=== PATIENT | male | born 1945 | race Caucasian/White ===

== ENCOUNTER → 2016-04-16 | Outpatient (CLI) | payer MEDICARE | END | disposition home or self-care (01) | LOC: PCVCCLINIC 11:45 | PROVIDERS: ATTEND Internal Medicine Cardiovascular Disease | DX: I25.10 Atherosclerotic heart disease of native coronary artery without angina pectoris (principal); E78.00 Pure hypercholesterolemia, unspecified; I10 Essential (primary) hypertension; I25.5 Ischemic cardiomyopathy; F41.9 Anxiety disorder, unspecified | CPT/HCPCS: 93005; G0463 ==

== ENCOUNTER → 2016-04-30 | Outpatient (CLI) | payer MEDICARE ==
[~2016-04-30] MED LIST: REGADENOSON 0.4 MG/5 ML DISP.SYRIN. IV ONE
== END | disposition home or self-care (01) ==
LOC: PCVCIMAG 07:49
PROVIDERS: ATTEND Internal Medicine Cardiovascular Disease
DX: I25.10 Atherosclerotic heart disease of native coronary artery without angina pectoris (principal); Z95.5 Presence of coronary angioplasty implant and graft
CPT/HCPCS: 78452; 93017; A9500; J2785

== ENCOUNTER → 2017-03-17 | Outpatient (CLI) | payer MEDICARE | END | disposition home or self-care (01) | LOC: PCVCCLINIC 11:18 | DX: I25.10 Atherosclerotic heart disease of native coronary artery without angina pectoris (principal); I10 Essential (primary) hypertension; I25.5 Ischemic cardiomyopathy; I65.29 Occlusion and stenosis of unspecified carotid artery; I77.810 Thoracic aortic ectasia; Q21.1 Atrial septal defect; E78.00 Pure hypercholesterolemia, unspecified; I48.0 Paroxysmal atrial fibrillation; R09.89 Other specified symptoms and signs involving the circulatory and respiratory systems; R94.31 Abnormal electrocardiogram [ECG] [EKG]; Z87.891 Personal history of nicotine dependence; Z79.82 Long term (current) use of aspirin; Z79.899 Other long term (current) drug therapy | CPT/HCPCS: 80061; 93005; G0463 ==

== ENCOUNTER → 2017-06-09 | Outpatient (CLI) | payer MEDICARE | END | disposition home or self-care (01) | LOC: PCVCIMAG 09:06 | DX: I10 Essential (primary) hypertension (principal) | CPT/HCPCS: 76770; 93975 ==

== ENCOUNTER → 2017-06-11 | Outpatient (CLI) | payer MEDICARE | END | disposition home or self-care (01) | LOC: PCVCCLINIC 12:18 | DX: I25.10 Atherosclerotic heart disease of native coronary artery without angina pectoris (principal); I10 Essential (primary) hypertension; Q21.1 Atrial septal defect; I48.0 Paroxysmal atrial fibrillation; F41.9 Anxiety disorder, unspecified; I25.84 Coronary atherosclerosis due to calcified coronary lesion; R94.31 Abnormal electrocardiogram [ECG] [EKG]; G45.8 Other transient cerebral ischemic attacks and related syndromes; Z79.82 Long term (current) use of aspirin; Z79.899 Other long term (current) drug therapy | CPT/HCPCS: 93005; G0463 ==

== ENCOUNTER → 2017-11-03 | Outpatient (CLI) | payer MEDICARE ==
--- NOTE | 2017-11-03 09:59 | PCVCIMAG ---
APPROVED REPORT Indications Bruit Risk Factors Hypertension: TIA/CVA History Hyperlipidemia Doppler Spectral Velocity Analysis PSV / EDVPSV / EDV ECA (R) 80 / 5 cm/sECA (L) 60 / 4 cm/s dICA (R) 46 / 9 cm/sdICA (L) 71 / 13 cm/s [place] (R) 60 / 10 cm/smICA (L) 106 / 19 cm/s pICA (R) 51 / 8 cm/spICA (L) 56 / 6 cm/s Bulb (R) 28 / 6 cm/sBulb (L) 37 / 5 cm/s dCCA (R) 79 / 6 cm/sdCCA (L) 60 / 6 cm/s mCCA (R) 95 / 6 cm/smCCA (L) 93 / 8 cm/s Vert (R) 65 / 10 cm/sVert (L) 81 / 11 cm/s ICA/CCA 0.64ICA/CCA 1.14 Basic Measurements Blood Pressure: Pulses: Right Left RightLeft Brachial(Sitting) 150/08bfRk342/72mmHgTemporal Real Time B-Mode Imaging Vert. (R)AntegradeVert. (L)Antegrade Findings The right carotid bulb has minimal plaque. The right proximal internal carotid artery shows no significant stenosis. The right common carotid artery shows no significant stenosis. The right external carotid artery shows no significant stenosis. The left carotid bulb has minimal plaque. The left proximal internal carotid artery shows no significant stenosis. The left common carotid artery shows no significant stenosis. The left external carotid artery shows no significant stenosis. Conclusion 1. No significant stenosis involving either carotid artery 2. Antegrade vertebral flow
--- NOTE | 2017-11-03 10:12 | PCVCIMAG ---
APPROVED REPORT Study performed: 11/03/2017 08:56:56 EXAM: Comprehensive 2D, Doppler, and color-flow Echocardiogram Patient Location: Echo lab Room #: 2Status: routine BSA: 2.17 HR: 62 bpmBP: 168/62 mmHg Rhythm: NSR Other Information Study Quality: Good Risk Factors: Cardiac Risk Factors: HTN, Hyperlipidemia Indications ASD CAD Cardiomyopathy Hx PFO, AO root dilitation 2D Dimensions LVEF(%): 55.31 (>50%) IVSd: 11.94 (7-11mm)LVOT Diam: 22.31 (18-24mm) LVDd: 57.98 mm PWd: 9.43 (7-11mm)Ascending Ao: 53.32 (22-36mm) LVDs: 41.03 (25-40mm) Left Atrium: 40.42 (27-40mm) Aortic Root: 44.48 mm LV Single Plane 4CH: 43.60 % LV Single Plane 2CH: 45.30 %Melendez's LVEF: 44.45 % Biplane EF: 43.8 % Volumes Left Atrial Volume (Systole) Single Plane 4CH: 68.42 mLSingle Plane 2CH: 68.23 mL Biplane LA Volume: 72.00 mLLA ESV Index: 33.00 mL/m2 Aortic Valve AoV Peak Wilfredo.: 1.60 m/s AO Peak Gr.: 10.28 mmHgLVOT Max P.75 mmHg LVOT Max V: 1.09 m/s DONA Vmax: 2.66 cm2 AI Vmax: 4.41 m/s AI [place]: 2.97 m/s2 AI PHT: 436.15 ms Mitral Valve E/A Ratio: 0.5 MV Decel. Time: 183.09 ms MV E Max Wilfredo.: 0.37 m/s MV A Wilfredo.: 0.74 m/s IVRT: 207.61 ms TDI E/Lateral E': 7.40E/Medial E': 7.40 Medial E' Wilfredo.: 0.05 m/s Lateral E' Wilfredo.: 0.05 m/s Pulmonary Valve PV Peak Wilfredo.: 0.83 m/sPV Peak Gr.: 2.77 mmHg Pulmonary Vein P Vein S: 0.72 m/sP Vein A: 0.25 m/s P Vein D: 0.36 m/sP Vein A Dur.: 103.8 msec P Vein S/D Ratio: 2.00 Tricuspid Valve TR Peak Wilfredo.: 1.98 m/s TR Peak Gr.: 15.64 mmHg TV Vmax: 0.71 m/sPA Pressure: 23.00 mmHg Left Ventricle Left ventricle is mildly dilated. There is normal LV segmental wall motion. Mild concentric left ventricular hypertrophy. Left ventricular systolic function is mildly decreased. LVEF is 40-45%. Grade I - abnormal relaxation pattern. Right Ventricle The right ventricle is normal size. The right ventricular systolic function is normal. Atria The left atrium size is normal. PFO is noted from prior study. The right atrium size is normal. Aortic Valve Aortic valve is trileaflet. Mild aortic valve sclerosis. Aortic valve is possibly bicuspid. Moderate aortic regurgitation. There is no aortic valvular stenosis. Mitral Valve The mitral valve is normal in structure. There is no mitral valve regurgitation noted. No evidence of mitral valve stenosis. Tricuspid Valve The tricuspid valve is normal in structure. Trace tricuspid regurgitation with a normal PA pressure of 23 mmHg. Pulmonic Valve The pulmonary valve is normal in structure. There is no pulmonic valvular regurgitation. Great Vessels Aortic root is moderately dilated. The ascending aorta is severely dilated at 5.3cm. The aortic arch is dilated at 3.5cm. IVC is normal in size and collapses with >50% inspiration Pericardium There is no pericardial effusion. There is no pleural effusion. <Conclusion> Left ventricle is mildly dilated. Mild concentric left ventricular hypertrophy. Left ventricular systolic function is mildly decreased. LVEF is 40-45%. Grade I - abnormal relaxation pattern. Aortic valve is trileaflet. Mild aortic valve sclerosis. Aortic valve is possibly bicuspid. Moderate aortic regurgitation. There is no aortic valvular stenosis. There is no mitral valve regurgitation noted. Trace tricuspid regurgitation with a normal PA pressure of 23 mmHg. Aortic root is moderately dilated. The ascending aorta is severely dilated at 5.3cm. The aortic arch is dilated at 3.5cm. There is no pericardial effusion.
== END | disposition home or self-care (01) ==
LOC: PCVCIMAG 10:26
PROVIDERS: ATTEND Internal Medicine Cardiovascular Disease
DX: I10 Essential (primary) hypertension (principal); R09.89 Other specified symptoms and signs involving the circulatory and respiratory systems; E78.5 Hyperlipidemia, unspecified; Z86.73 Personal history of transient ischemic attack (TIA), and cerebral infarction without residual deficits; I25.5 Ischemic cardiomyopathy; I25.10 Atherosclerotic heart disease of native coronary artery without angina pectoris; I77.810 Thoracic aortic ectasia; I35.1 Nonrheumatic aortic (valve) insufficiency; I48.0 Paroxysmal atrial fibrillation; I65.23 Occlusion and stenosis of bilateral carotid arteries; E78.00 Pure hypercholesterolemia, unspecified; Q21.1 Atrial septal defect; Z79.82 Long term (current) use of aspirin; Z87.891 Personal history of nicotine dependence
CPT/HCPCS: 85610; 93005; 93306; 93880; G0463

== ENCOUNTER → 2018-05-11 | Outpatient (CLI) | payer MEDICARE ==
--- NOTE | 2018-05-11 11:44 | PCVCIMAG ---
APPROVED REPORT Imaging Protocol: Rest Tc-99m/Stress Tc-99m 1 day Study performed: 05/11/2018 08:59:04 Indication: CAD , Atrial Fibrillation, ICM Patient Location: Out-Patient Stress Nurse: Tatum Lofton RN, Charlotte Westfall RN [place] Tech:Nuria LIU SaezMT Ht: 6 ft 1 in Wt: 205 lbs BSA: 2.17 m2 HR: 61 bpm BP: 177/74 mmHg BMI: 27.04 Rhythm: Sinus Rhythm, nonspecific ST-T abnormalities Medical History Medical History: HTN, Hyperlipidemia, CAD, CVD, Former Smoker, Atrial Fibrillation Medications: Norvasc, ASA, Plavix, Benicar, Trileptal, Prevacid, Bystolic Allergies: No known drug allergies Cardiac Risk Factors: Age Previous Cardiac Procedures: 2008 PCI Pretest Chest Pain Characteristics: No chest pain Physical Disabilities: Knees Meds Held (24 hrs): Bystolic Resting Data Rest SPECT myocardial perfusion imaging was performed in supine position 45 minutes following the intravenous injection of 10.7 mCi of Tc-99m Sestamibi. Time of rest injection: 814 Date: 05/11/2018 Administration Route: IV Administration Site: Right AC Pharmacologic Stress Pharmacologic stress test was performed by injecting Regadenoson 0.4 mg IV push over 10-15 seconds immediately followed by the intravenous injection of 33.9 mCi of Tc-99m Sestamibi. Time of stress injection: 929 Date: 05/11/2018 Administration Route: IV Administration Site: Right AC Gated Stress SPECT was performed 45 minutes after stress injection. The images were gated to evaluate regional wall motion and calculate left ventricular ejection fraction. Stress Test Details Stress Test: Pharmacologic stress testing performed using 0.4 mg of regadenoson per 5 mL given IV over 10 seconds. Reason for pharmacologic stress test: knee issues. HRMax Heart Rate (APMHR): 148 bpm Resting HR: 61 bpmTarget HR (85% APMHR): 125 bpm Max HR Achieved: 95 bpm % of APMHR: 64 Recovery HR: 71 bpm BP Resting BP: 177/74 mmHg Max BP: 194/73 mmHg Recovery BP: 178/74 mmHg ECG Resting ECG: Sinus Rhythm, nonspecific ST-T abnormalities Stress ECG: Sinus Rhythm, nonspecific ST-T abnormalities ST Change: Non-ischemic Arrhythmia: VPC's Recovery ECG: Sinus Rhythm, nonspecific ST-T abnormalities Clinical Reason for Termination: Completed protocol Stress Symptoms: Dyspnea, Lightheaded Exercise duration: 0 min 55 sec Symptoms resolved during recovery. Study Quality Study: Good Study Data Post stress, the left ventricular ejection was 44%.. SSS: 1 SRS: 2 SDS: 0 TID = 1.07. Perfusion There is a medium area of moderately reduced uptake in the basal and mid segment of the inferior wall which is seen on the stress images as well as the resting images. This area is hypokinetic and is most consistent with myocardial scar. Wall Motion Mildly decreased left ventricular systolic function. Nuclear Conclusion ECG Findings: negative for ischemia Clinical Findings: non-diagnostic Nuclear Findings: positive for infarct Exercise Capacity: not assessed Left Ventricular Function: abnormal This study reveals a fixed defect in the mid to basal inferior wall, consistent with infarct. There is mild LV dysfunction, with corresponding hypokinesis of the infarcted territory.
== END | disposition home or self-care (01) ==
LOC: PCVCIMAG 07:51
PROVIDERS: ATTEND Internal Medicine Cardiovascular Disease
DX: I25.10 Atherosclerotic heart disease of native coronary artery without angina pectoris (principal); I48.0 Paroxysmal atrial fibrillation; Q21.1 Atrial septal defect; I65.23 Occlusion and stenosis of bilateral carotid arteries; I10 Essential (primary) hypertension; I25.5 Ischemic cardiomyopathy; I77.810 Thoracic aortic ectasia; E78.5 Hyperlipidemia, unspecified; Z87.891 Personal history of nicotine dependence
CPT/HCPCS: 36415; 78452; 80061; 93017; A9500; G0463; J2785

== ENCOUNTER → 2018-11-24 | Outpatient (CLI) | payer MEDICARE ==
--- NOTE | 2018-11-24 16:48 | PCVCIMAG ---
APPROVED REPORT Study performed: 11/24/2018 13:57:30 EXAM: Comprehensive 2D, Doppler, and color-flow Echocardiogram Patient Location: Echo lab Status: routine BSA: 2.13 HR: 56 bpmBP: 132/70 mmHg Rhythm: NSR Other Information Study Quality: Good Risk Factors: Cardiac Risk Factors: HTN, Hyperlipidemia Indications Pleural Effusion Dilated Aortic Root, Ischemic cardiomyopathy 2D Dimensions IVSd: 12.64 (7-11mm)LVOT Diam: 23.91 (18-24mm) LVDd: 48.64 mm PWd: 7.35 (7-11mm)Ascending Ao: 50.88 (22-36mm) LVDs: 46.24 (25-40mm) Left Atrium: 34.18 (27-40mm) Aortic Root: 42.27 mm LV Single Plane 4CH: 59.73 % LV Single Plane 2CH: 50.68 % Volumes Left Atrial Volume (Systole) Single Plane 4CH: 25.73 mLSingle Plane 2CH: 43.79 mL LA ESV Index: 27.00 mL/m2 Aortic Valve AoV Peak Wilfredo.: 1.67 m/s AO Peak Gr.: 11.12 mmHgLVOT Max P.55 mmHg LVOT Max V: 1.07 m/s DONA Vmax: 2.87 cm2 AI Vmax: 4.07 m/s AI [place]: 2.10 m/s2 AI PHT: 561.95 ms Mitral Valve E/A Ratio: 0.4 MV Decel. Time: 227.34 ms MV E Max Wilfredo.: 0.42 m/s MV A Wilfredo.: 1.03 m/s TDI E/Lateral E': 4.67E/Medial E': 8.40 Medial E' Wilfredo.: 0.05 m/s Lateral E' Wilfredo.: 0.09 m/s Pulmonary Valve PV Peak Gr.: 2.78 mmHg Pulmonary Vein P Vein S: 0.85 m/sP Vein A: 0.41 m/s P Vein D: 0.33 m/sP Vein A Dur.: 148.8 msec P Vein S/D Ratio: 2.58 Tricuspid Valve TR Peak Wilfredo.: 2.22 m/s TR Peak Gr.: 19.70 mmHg Left Ventricle The left ventricle is normal size. There is normal LV segmental wall motion. There is normal left ventricular wall thickness. Left ventricular ejection fraction is mildly decreased. LVEF is 45%. Grade I - abnormal relaxation pattern. Right Ventricle The right ventricle is normal size. The right ventricular systolic function is normal. Atria The left atrium size is normal. History of Small PFO. The right atrium size is normal. Aortic Valve The aortic valve is normal in structure. Moderate aortic regurgitation. There is no aortic valvular stenosis. Mitral Valve The mitral valve is normal in structure. There is no mitral valve regurgitation noted. No evidence of mitral valve stenosis. Tricuspid Valve The tricuspid valve is normal in structure. Trace tricuspid regurgitation. Pulmonary artery pressure is 27mmHg. Pulmonic Valve The pulmonary valve is normal in structure. There is no pulmonic valvular regurgitation. Great Vessels The aortic root is normal in size. The ascending aorta is severely dilated measuring 5.3cm. IVC is normal in size and collapses >50% with inspiration. Pericardium There is no pericardial effusion. <Conclusion> The left ventricle is normal size. Left ventricular ejection fraction is mildly decreased. LVEF is 45%. Grade I - abnormal relaxation pattern. The right ventricle is normal size. The left atrium size is normal. History of Small PFO. Moderate aortic regurgitation. There is no mitral valve regurgitation noted. Trace tricuspid regurgitation. Pulmonary artery pressure is 27mmHg. The aortic root is normal in size. The ascending aorta is severely dilated measuring 5.3cm. There is no pericardial effusion.
== END | disposition home or self-care (01) ==
LOC: PCVCIMAG 14:00
PROVIDERS: ATTEND Internal Medicine Cardiovascular Disease
DX: I35.1 Nonrheumatic aortic (valve) insufficiency (principal); J90 Pleural effusion, not elsewhere classified; I25.10 Atherosclerotic heart disease of native coronary artery without angina pectoris; E78.00 Pure hypercholesterolemia, unspecified; I65.23 Occlusion and stenosis of bilateral carotid arteries; Q21.1 Atrial septal defect; I10 Essential (primary) hypertension; I48.0 Paroxysmal atrial fibrillation; I77.810 Thoracic aortic ectasia; I25.5 Ischemic cardiomyopathy; Z87.891 Personal history of nicotine dependence
CPT/HCPCS: 36415; 80061; 93005; 93306; G0463